=== PATIENT | male | born 1975 | race Caucasian/White ===

== ENCOUNTER 2022-09-21 09:36 | Day surgery (SDC) | payer BC ==
[2022-09-21] VITALS (17 sets, daily range): BP systolic 115–142; BP diastolic 59–73; PULSE 47–73; RESP 9–16; TEMP 97.7; O2SAT 98–100
[~2022-09-21] VITALS: Ht 188 cm; Wt 87.0 kg
[~2022-09-21 09:36] MED LIST: MALTODEXTRIN/FRUCTOSE 0.68 KCAL/ML LIQUID 296ML BOTTLE PO ONE; NO HOME MEDS; cefazolin 2gm/D5W 100mL 100 ML IV ONE; famotidine 20mg tablet PO ONE; ringers solution, lacted 1,000 ML IV SCH
[2022-09-21 10:28] LABS: BASOPHILS # (AUTO) 0.1 X10'3 (0-0.2); EOSINOPHILS # (AUTO) 0.1 X10'3 (0-0.9); EOSINOPHILS % (AUTO) 2.3 % (0-6); LYMPHOCYTES # (AUTO) 1.9 X10'3 (1.1-4.8); LYMPHOCYTES % (AUTO) 30.2 % (21-51); MEAN CORPUSCULAR HEMOGLOBIN 29.9 PG (27.0-31.0); MEAN CORPUSCULAR HGB CONC 34.1 g/dL (33.0-36.5); MEAN CORPUSCULAR VOLUME 87.6 FL (78-98); MONOCYTES # (AUTO) 0.5 X10'3 (0-0.9); MONOCYTES % (AUTO) 8.1 % (2-12); NEUTROPHILS # (AUTO) 3.6 X10'3 (1.8-7.7); NEUTROPHILS % (AUTO) 58.4 % (42-75); PRE OP HEMATOCRIT 44.2 % (42.0-52.0); PRE OP HEMOGLOBIN 15.1 g/dL (14.0-17.9); PRE OP PLATELET COUNT 185 X10'3 (140-440); RED BLOOD COUNT 5.04 X10'6 (4.70-6.10); RED CELL DISTRIBUTION WIDTH 13.9 % (11.5-14.5)
[2022-09-21 10:38] LABS: ALBUMIN 3.9 G/DL (3.4-5.0); ALBUMIN/GLOBULIN RATIO 1.3 (1.1-1.5); ALKALINE PHOSPHATASE 69 IU/L (46-116); BLOOD UREA NITROGEN 11 MG/DL (7-18); BUN/CREATININE RATIO 14.3 (10.0-20.0); CALCIUM 8.3 MG/DL (8.5-10.1); CHLORIDE 102 MMOL/L (99-107); CREATININE 0.77 MG/DL (0.60-1.10); PRE OP ALT 21 U/L (30-65); PRE OP ANION GAP 8 (8-16); PRE OP AST 24 U/L (10-37); PRE OP BILIRUB, TOTAL 0.8 MG/DL (0.0-1.0); PRE OP GLUCOSE 94 MG/DL (70-104); PRE OP POTASSIUM 3.7 MMOL/L (3.4-5.1); PRE OP SODIUM 139 MMOL/L (135-145); TOTAL CARBON DIOXIDE 29.2 MMOL/L (24-32); TOTAL PROTEIN 6.8 G/DL (6.4-8.2); eGFR > 90 ML/MIN
[2022-09-21] MEDS ORDERED: LIDOcaine 1% W/epiNEPHrine 1:100,000 20ml vial ONE (12:51)
[2022-09-21] MEDS ORDERED: tobramycin 40mg/ml inj ONE (12:51)
[2022-09-21] MEDS ORDERED: BUPIVAcaine/PF 2.5 mg/ml (0.25%) 30ml vial ONE (12:51)
[2022-09-21] MEDS ORDERED: sevoflurane 250ml liquid IH ONE (12:52)
[2022-09-21] MEDS ORDERED: midazolam 1 mg/ML 2ml injection ONE (13:03)
[2022-09-21] MEDS ORDERED: propofol inj 20 ML IV ONE (13:14)
[2022-09-21] MEDS ORDERED: fentaNYL /PF 50mcg/ml 5ml ampule ONE (13:14)
[2022-09-21] MEDS ORDERED: LIDOcaine 2% (20mg/ml) 5ml vial ONE (13:15)
[2022-09-21] MEDS ORDERED: rocuronium 10mg/ml inj IV ONE (13:15)
[2022-09-21] MEDS ORDERED: dexamethasone sod phosphate 4mg/ml inj. ONE (15:01)
[2022-09-21] MEDS ORDERED: glycopyrrolate 0.2mg/ml inj ONE (15:01)
[2022-09-21] MEDS ORDERED: ondansetron/PF 4mg/2ml inj ONE (15:01)
[2022-09-21] MEDS ORDERED: neostigmine methylsulfate 1 MG/ML 10ml vial ONE (15:01)
[2022-09-21] MEDS ORDERED: ringers solution, lacted 1,000 ML IV SCH (15:25)
[2022-09-21] MEDS ORDERED: meperidine/PF 25mg/ml syringe IV PRN ×3 (15:25)
[2022-09-21] MEDS ORDERED: ketorolac trometh. 30mg/ml inj. IV ONE (15:25)
[2022-09-21] MEDS ORDERED: ondansetron/PF 4mg/2ml inj IV PRN (15:25)
[2022-09-21] MEDS ORDERED: morphine 4 MG/ML inj SYRINge IV PRN (15:25)
[2022-09-21] MEDS ORDERED: acetaminophen 1,000mg/100ml IV 100 ML IV PRN (15:25)
[2022-09-21] MEDS ORDERED: labetalol 20mg/4ml (5mg/ml) syringe IV PRN (15:25)
[2022-09-21] MEDS ORDERED: morphine 2 MG/ML inj. syringe IV PRN (15:25)
[2022-09-21] MEDS ORDERED: hydrALAZINE 20mg/ml inj. IV PRN (15:25)
[2022-09-21] MEDS ORDERED: proCHLORperazine 10 MG/2 ml inj IV PRN (15:25)
--- NOTE | 2022-09-21 15:25 | NUR ---
Received from OR via [facility] TO [facility] 5, accompanied by Anesthesiologist DR MANCIA and report given by Anesthesiolgist. PT PRESENTS WIT PIV 20G RIGHT FOREARM. ABD DRESSING CDI, SPO2 99% 6L MASK, LR RUNNING AT 100MLS/HR. VSS. Addendum: 09/21/22 at 1544 by Selena Chaves RN, RN Amended: Links added.
--- NOTE | 2022-09-21 16:46 | NUR ---
PT SITTING UP IN BED AND HAS DRANK APROX 800MLS OF WATER.
[2022-09-21] MEDS ORDERED: traMADol 50MG tablet PO ONE (16:58)
--- NOTE | 2022-09-21 17:45 | NUR ---
PT URINATED 175 MLS IN URINAL, BLADDER SCAN SHOWS 59MLS IN BLADDER. Addendum: 09/21/22 at 1816 by Selena Chaves RN, RN Amended: Links added.
--- NOTE | 2022-09-21 18:05 | NUR ---
I HAVE REVIEWED D/C INSTRUCTIONS WITH PATIENT AND THEY HAVE VERBALIZED UNDERSTANDING OF INSTRUCTIONS. IV DC'D WITH CANULA INTACT. PT URINATED 175 MLS AND BLADDER SCAN WITH 59MSL IN BLADDER. PT WHEELED OUT IN WHEELCHAIR TO PRIVATE VEHICLE. PATIENT D/C HOME WITH ALL BELONGINGS AND FAMILY GAVE TRANSPORT Addendum: 09/21/22 at 1819 by Selena Chaves RN, RN Amended: Links added.
== END 2022-09-21 18:05 | disposition home or self-care (01) ==
LOC: PAS 09:36
PROVIDERS: ATTEND Colon & Rectal Surgery
DX: K40.90 Unilateral inguinal hernia, without obstruction or gangrene, not specified as recurrent (principal); Z98.890 Other specified postprocedural states; Z79.899 Other long term (current) drug therapy
CPT/HCPCS: 36415; 49650; 80053; 85025; 93005; A6258; C1781; J0131; J0690; J1100; J1885; J2250; J2405; J2704; J2710; J3010; J3260; J3490; J7030; J7120; S2900; Z7506; Z7508; Z7512; A4215; A4618; A7000; C1758